=== PATIENT | female | born 1935 | race Caucasian/White ===

== ENCOUNTER 2016-03-06 09:51 | Emergency (ER) | payer MEDICARE, BC ==
[2016-03-06 10:25] VITALS: BP 149/71
--- NOTE | 2016-03-06 10:35 | ERNOTE ---
Dyspnea - Date Date of Service: 03/06/16 - General Presenting Symptoms: shortness of breath, difficulty of breathing Time Seen by Provider: 03/06/16 10:34 Source: patient, family - Exam Limitations: no limitations - Immun/Allergies/Home Medications Immunizations: IMMUNIZATION HX History of Influenza Vaccine Yes Hx Pneumococcal Vaccination Yes Allergies/Adverse Reactions: Allergies milk Adverse Reaction (Mild, Verified 03/06/16 10:28) Other Home Medications: HOME MEDICATIONS Omeprazole Magnesium [Prilosec Otc] 1 tab PO DAILY 02/09/12 [Last Taken 06:00] Acetaminophen [Tylenol] 1,000 mg PO BID 02/13/13 [Last Taken Unknown] Aspirin [Aspirin Chewable] 81 mg PO DAILY 02/13/13 [Last Taken Unknown] Tramadol HCl 50 mg PO BID 02/13/13 [Last Taken Unknown] Albuterol Sulfate [Albuterol Sulfate 2.5 MG/0.5ML] 1 vial IH Q4H PRN #100 vial 03/06/16 [Last Taken Unknown] Albuterol Sulfate [Ventolin Hfa] 8 gm IH PRN PRN 03/06/16 [Last Taken Unknown] Azithromycin [Zithromax] 250 mg PO DAILY #5 tablet 03/06/16 [Last Taken Unknown] Fluticasone/Salmeterol [Advair 100-50 Diskus] 1 puff IH BID 03/06/16 [Last Taken Unknown] Prednisone 50 mg PO DAILY #4 tablet 03/06/16 [Last Taken Unknown] - History of Present Illness Date (Duration): 03/03/16 Severity: mild Initiating event: Reports: upper resp illness Modifying Factors (Worsens): Reports: activity Associated Symptoms-Dyspnea: Reports: chest pain/discomfort - around the outer aspect of ribs, worse with deep breaths, and inspirations, cough, wheezing. Denies: fever/chills, sweating, palpitations, leg/calf pain, ankle/leg swelling , dizziness, lightheadedness, weakness, anxiety, tingling of hands/face, muscle spasms, loss of appetite Review of Systems - Review of Systems Constitutional: Present: no symptoms reported, fever. Absent: diaphoresis, weakness, fatigue EYE: Absent: blurred vision, double vision ENT: Absent: nose pain, nose congestion, nasal drainage Respiratory: Present: shortness of breath, cough, wheezing. Absent: orthopnea Cardiology: Absent: chest pain, palpitations, syncope Gastrointestinal/Abdominal: Absent: vomiting, diarrhea, constipation, abdominal pain Genitourinary: Absent: pain, dysuria, hematuria, decreased urinary output Neurological: Absent: headache, dizziness/light-headedness, weakness, numbness, tingling All Other Systems: All systems neg except as marked - Patient's Past Medical History Patient History - Medical: No pertinent hx Patient History - Cancer: No Hx of Cancer Patient History - Surgical Procedures: Appendectomy, Cataracts, Cholecystectomy , Hysterectomy - Social History Living Situations: home Smoking Status: Never smoker Have you smoked in the past 12 months: No Alcohol Use: none Drug Use: none Physical Exam - Physical Exam General Appearance: Present: wd/wn, alert, no apparent distress Ears, Nose, Throat: Present: normal ENT inspection, hearing grossly normal, normal pharynx Neck: Present: normal inspection, nontender, supple, full range of motion Respiratory: Present: no respiratory distress, normal breath sounds, no accessory muscle use, decreased breath sounds - especially at the bibasilar area , rhonchi, wheezing Cardiovascular/Chest: Present: regular rate, rhythm, no murmur, normal peripheral pulses Gastrointestinal/Abdominal: Present: normal bowel sounds, nontender, nondistended, no organomegaly Back Exam: Present: normal inspection, normal range of motion Extremity Exam: Present: normal inspection, non-tender, no edema Neurological Exam: Present: alert, oriented, normal mood/affect, no motor/ sensory deficits ED Progress - Results and Orders Patient's Lab Results:: I have reviewed the patient's lab results. - Vital Signs Patient's Vital Signs:: I have reviewed the patient's vital signs. Vital Signs: Vital Signs 03/06/16 10:22 Temperature 37.8 C H Pulse Rate 84 Respiratory 16 Rate Blood Pressure 149/71 O2 Sat by Pulse 94 Oximetry - X-Ray X-Ray #1 X-Ray: chest Interpretation: Reviewed by me - x-ray does not show any acute changes, Discd w / radiologist - Progress/Reassessment Chief Complaint: Dyspnea Progress:: Improved - Transfer of Care Expected Disposition: Discharge Additional Notes: Since feeling better desires to go home. Patient was able to ambulate in the halls maintaining her oxygen saturations greater than 93%. Does not want to be admitted to the hospital. Ahead and start her on a Z-Farooq, oral prednisone for 4 days, continuing her inhaler, nebulizer at home will put her on some neb meds that she can do every 4 hours as needed. H and understands return back to the ER with any change or worsening symptoms. Warning signs and symptoms have been reviewed with the patient and in regards to return back to the ER. Departure Clinical Impression: Bronchitis Asthmatic bronchitis Qualifiers: Asthma severity: mild intermittent Asthma complication type: uncomplicated Qualified Code(s): J45.20 - Mild intermittent asthma, uncomplicated - Departure Disposition: Home Follow Up Needed Condition: Good Instructions: Asthma, Adult, [id number], Acute Bronchitis Referrals: Maricel Hannah FNP [Primary Care Provider] - Prescriptions: Albuterol Sulfate [Albuterol Sulfate 2.5 MG/0.5ML] 1 vial IH Q4H PRN #100 vial PRN Reason: Shortness Of Breath Azithromycin [Zithromax] 250 mg PO DAILY #5 tablet Prednisone 50 mg PO DAILY #4 tablet
[2016-03-06] MEDS ORDERED: ALBUTEROL SULFATE/IPRATROPIUM 3 ML NEBU IH ONE ×2 (10:43→11:05)
[2016-03-06 10:55] LABS: Hematocrit 39.9 % (37.0-47.0); Hemoglobin 13.3 gm/dL (12.5-16.0); Mean Corpuscular Hgb Conc 33.3 g/dl (32-36); Mean Platelet Volume 9.7 fl (6.0-9.5); Neutrophil # 4.6 K/mm3 (1.3-6.0); Platelet Count 163 K/mm3 (150-450); Red Blood Count 4.29 M/mm3 (4.2-5.4); Red Cell Distribution Width 12.5 % (11.5-14.0); White Blood Count 5.8 K/mm3 (4.0-10.5)
[2016-03-06 11:15] LABS: Troponin I Less than 0.017 ng/ml (0.00-0.10)
[2016-03-06 11:17] LABS: ALT 22 U/L (19-67); AST 19 U/L (0-48); Albumin * 3.6 gm/dl (3.4-5.0); Alkaline Phosphatase * 81 U/L (50-170); Anion Gap 8.5 mmol/L (6.8-13.8); BNP * 148 pg/mL (5-550); Bilirubin, Total 0.4 mg/dL (0.0-1.1); Blood Urea Nitrogen 6 mg/dL (3-23); CRP 0.6 mg/dL (0.0-0.9); Ca. Corrected For Albumin 9.2 mg/dL (8.4-10.2); Calcium * 9.2 mg/dL (7.9-10.9); Carbon Dioxide 31.8 mmol/L (24-32.6); Chloride 105 mmol/L (97-106); Glucose * 140 mg/dL (70-110); Potassium 4.3 mmol/L (3.4-4.6); Sodium 141 mmol/L (132-142); Total Protein 7.2 gm/dL (6.2-8.2)
[2016-03-06] MEDS ORDERED: METHYLPREDNISOLONE SOD SUCC/PF 40 MG/ML VIAL IV ONE (11:58)
[2016-03-06] MEDS ORDERED: METHYLPREDNISOLONE SOD SUCC/PF 40 MG/ML VIAL ONE (12:10)
== END 2016-03-06 12:20 | disposition home or self-care (01) ==
LOC: ER 09:51
DX: J45.20 Mild intermittent asthma, uncomplicated (principal)